=== PATIENT | male | born 1990 | race Caucasian/White ===

== ENCOUNTER 2023-10-18 21:35 | Emergency (ER) | payer MEDICAID, SELFPAY ==
--- NOTE | ~2023-10-18 | XR_ITS ---
EXAMINATION: XR CHEST CLINICAL INFORMATION: Chest pain COMPARISON: 08/04/2019 TECHNIQUE: Frontal view of the chest was obtained. FINDINGS: No significant abnormality is noted involving the heart, lungs, mediastinum, bony thorax or soft tissues. XR/XR chest 1V IMPRESSION: Unremarkable examination.
--- NOTE | 2023-10-18 21:40 | ECG_ITS ---
Test Reason : CHEST PAIN Blood Pressure : / mmHG Vent. Rate : 084 BPM Atrial Rate : 084 BPM P-R Int : 146 ms QRS Dur : 090 ms QT Int : 350 ms P-R-T Axes : 049 086 030 degrees QTc Int : 413 ms Normal sinus rhythm Normal ECG When compared with ECG of 30-DEC-2008 23:13, No significant change was found Referred By: Generic ED Physician Electronically Signed By:ORLIN OTT
[2023-10-18 21:54] VITALS: BP 126/73; PULSE 78; RESP 14; TEMP 37.1; O2SAT 98; BMI 32.7
[2023-10-18 21:56] LABS: MANUAL DIFF FLAG NO
[2023-10-18 22:06] LABS: Basophils Percent Auto 0.2 % (0-2); Eosinophils Absolute Auto 0.1 X10*3/uL (0.0-0.4); Eosinophils Percent Auto 1.1 % (0-4); Hematocrit 45.9 % (42.0-52.0); Hemoglobin 15.6 g/dl (14.0-18.0); Imm Gran Abs Auto 0.03 X10*3/uL (0.00-0.03); Imm Gran Pct Auto 0.4 % (0.0-0.4); Lymphocytes Absolute Auto 1.4 X10*3/uL (1.2-4.9); Lymphocytes Percent Auto 17.9 % (20-40); Mean Corpuscular Hemoglobin 28.2 pg (27.0-33.0); Mean Corpuscular Volume 82.9 fL (80.0-98.0); Mean Platelet Volume 11.3 fL (9.4-12.4); Monocytes Absolute Auto 0.7 X10*3/uL (0.1-1.2); Monocytes Percent Auto 8.6 % (2-11); Neutrophils Absolute Auto 5.8 x10*3/uL (2.0-8.3); Neutrophils Percent Auto 71.8 % (45-73); Platelet Count 270 X10*3/uL (160-400); Red Blood Count 5.54 X10*6/uL (4.60-5.80); Red Cell Distribution Width 13.2 % (11.0-16.0)
[2023-10-18 22:19] LABS: Alanine Aminotransferase 23 U/L (0-40); Albumin Level 4.4 g/dL (3.5-5.0); Alkaline Phosphatase 88 U/L (39-117); Anion Gap 12 (12-20); Aspartate Amino Transferase 21 U/L (5-37); Bilirubin Total 0.5 mg/dL (0.0-1.0); Blood Urea Nitrogen 17 mg/dL (9-16); Calcium 9.3 mg/dL (8.4-10.2); Carbon Dioxide 21 mmol/L (22-29); Chloride 107 mmol/L (96-108); Creatinine Clr Calc Pharmacy 123.7; Estimated Glomerular Filt Rate > 60; Glucose Random 128 mg/dL (60-115); Sodium 136 mmol/L (135-145); Total Protein 7.3 g/dL (6.5-8.0)
[2023-10-18 22:27] LABS: Troponin-I High Sensitivity < 2.7 ng/L (<3.5-35.0)
== END 2023-10-19 05:15 | disposition left against medical advice (07) ==
PROVIDERS: Emergency Provider Emergency Medicine
DX: R07.89 Other chest pain (principal); M54.50 Low back pain, unspecified; Z79.899 Other long term (current) drug therapy
CPT/HCPCS: 36415; 71045; 80053; 84484; 85025; 93005; 99283

== ENCOUNTER → 2023-10-18 21:40 | Outpatient (BNV) | payer MEDICAID, SELFPAY | PROVIDERS: Emergency Provider Emergency Medicine; Visit Provider Internal Medicine | DX: R07.9 Chest pain, unspecified (principal) | CPT/HCPCS: 93010 ==

== ENCOUNTER → 2024-02-21 13:21 | Outpatient (BNVA) | payer SELFPAY | PROVIDERS: Visit Provider Physician Assistant Medical | DX: Z02.79 Encounter for issue of other medical certificate (principal) ==

== ENCOUNTER 2024-06-20 20:09 | Emergency (ER) | payer MEDICAID, SELFPAY ==
--- NOTE | ~2024-06-20 | XR_ITS ---
EXAMINATION: XR FINGER, RIGHT CLINICAL INFORMATION: trauma, foreign body COMPARISON: None available. TECHNIQUE: Frontal view of the hand. 2 coned-down views of the fourth finger. FINDINGS: No radiopaque foreign body. The bones and soft tissues are normal. No fracture. Alignment is anatomic. Joint spaces are maintained. XR/XR finger RT min 2V IMPRESSION: 1. No radiopaque foreign body. 2. No acute fracture or subluxation. Electronically signed by: Robert James MD 06/20/2024 11:22 PM LIZZY GARCIA
[2024-06-20 20:18] VITALS: BP 128/77; PULSE 76; RESP 18; TEMP 36.7; O2SAT 99; BMI 35.4
--- NOTE | 2024-06-20 20:18 | ED_ITS ---
HPI - General Adult General Chief complaint: Wound/Laceration Stated complaint: rt hand ring finger wound/staple in it? Related Data Allergies Allergy/AdvReac Type Severity Reaction Status Date / Time amoxicillin [AMOXICILLIN] Allergy Mild RASH Verified 06/20/24 20:22 Physical Exam ED Vital Signs: Vital Signs - 24 hr 06/20/24 20:18 Temperature 98.0 F Pulse Rate 76 Respiratory Rate 18 Blood Pressure 128/77 Pulse Oximetry 99 Oxygen Delivery Method Room Air BMI result Body Mass Index 35.4 Course Course Course Narrative: RME, this is a rapid medical exam performed by Bryant Dickey please refer to primary provider for complete H&P- 34-year-old male presents for evaluation of a right 4th finger injury. He was working with wood when a piece of the wood broke off and punctured his right 4th finger. He has an open wound to the ulnar side but a piece of wood sticking out on the radial side. It appears he has a large splinter in place. Plan for x-ray. He is unsure of his last tetanus shot. He does not believe that the wood was pressure treated Discharge Plan Discharge Print Language: Kiswahili
--- NOTE | 2024-06-20 22:22 | ED_ITS ---
HPI - Wound/Laceration General Chief Complaint: Wound/Laceration Stated Complaint: rt hand ring finger wound/staple in it? Time Seen by Provider: 06/20/24 21:38 Source: patient Mode of arrival: ambulatory Limitations: no limitations History of Present Illness ED Provider: HPI narrative: Patient apparently got a splinter in his right ring finger while working on diet broken table up-to-date in tetanus Related Data Previous Rx's ?Medication ?Instructions ?Recorded doxycycline hyclate 100 mg tablet 100 mg PO BID #20 tabs 06/20/24 Allergies Allergy/AdvReac Type Severity Reaction Status Date / Time amoxicillin [AMOXICILLIN] Allergy Mild RASH Verified 06/20/24 20:22 Review of Systems 2 Review of Systems: Yes all other systems are reviewed and are negative PMFSH Social History Social History Advance Directives: No Advance Directives Information Provided: Yes Physical Exam 2 Vital Signs: Vital Signs: Last Vital Signs Temp 98.1 F 06/20/24 22:42 Pulse 74 06/20/24 22:42 Resp 20 06/20/24 22:42 BP 128/76 06/20/24 22:42 Pulse Ox 98 06/20/24 22:42 O2 Del Method Room Air 06/20/24 22:42 BMI result Body Mass Index 35.4 Extrem: Hand/finger images: 1. Splinter in the right ring finger Medications Administered Discontinued Medications Generic Name Dose Route Start Last Admin Trade Name Freq PRN Reason Stop Dose Admin Bacitracin 1 appl 06/20/24 22:18 06/20/24 22:41 Bacitracin Oint 0.9 Gm Packet TOPICAL 06/20/24 22:19 1 appl ONCE ONE Administration Protocol Doxycycline Monohydrate 100 mg 06/20/24 22:18 06/20/24 22:41 Doxycycline Monohydrate 100 Mg Capsule PO 06/20/24 22:19 100 mg ONCE ONE Administration Lidocaine HCl 2 ml 06/20/24 22:18 06/20/24 22:41 Lidocaine Hcl 1 % Mpf 2 Ml Vial INFILTRATI 06/20/24 22:19 2 ml ONCE ONE Administration Medical Decision Making Medical Decision Making MDM Narrative: Would not splint her removed from the right ring finger intact using tweezers, will give prophylactic doxycycline x-ray negative Procedures Foreign Body Removal Site: right Description of foreign body: other (Wood splinter) Sedation/Analgesia: other (Lidocaine 1% local infiltration) Technique: removal with forceps Confirmed by:: direct visualization Complications: none Discharge Plan Discharge Clinical Impression: Foreign body finger Patient Disposition: Home, Self-Care Instructions: Soft Tissue Foreign Body (ED) Additional Instructions: Local care as advised Take antibiotics as prophylactically for infection Prescriptions: New doxycycline hyclate 100 mg tablet 100 mg PO BID Qty: 20 0RF Interventions: ED Discharge Assessment Last Done: 06/20/24 22:42 Discharge Date/Time: 06/20/24 22:43 Print Language: Croatian
[2024-06-20 22:33] VITALS: BP 128/76; PULSE 74; RESP 20; TEMP 36.7; O2SAT 98
[2024-06-20] MEDS: Bacitracin Oint 0.9 GM PACKET 1 APPL TOPICAL (22:41)
[2024-06-20] MEDS: Doxycycline Monohydrate 100 MG CAPSULE PO (22:41)
[2024-06-20] MEDS: Lidocaine HCl 1 % MPF 2 ML VIAL INFILTRATI (22:41)
[2024-06-20 22:42] VITALS: BP 128/76; PULSE 74; RESP 20; TEMP 36.7; O2SAT 98
== END 2024-06-20 22:43 | disposition home or self-care (01) ==
PROVIDERS: Emergency Provider Internal Medicine
DX: S60.454A Superficial foreign body of right ring finger, initial encounter (principal); M79.641 Pain in right hand; W26.8XXA Contact with other sharp object(s), not elsewhere classified, initial encounter; Y93.89 Activity, other specified; Y92.89 Other specified places as the place of occurrence of the external cause; Y99.8 Other external cause status
CPT/HCPCS: 10120; 73140; 99282; 99284; J2003

== ENCOUNTER 2024-09-05 09:43 | Outpatient (REF) | payer MEDICAID, SELFPAY ==
--- OUTSIDE RECORDS SUMMARY | 2024-09-05 11:04 | XMS_ITS | Clinical Summary ---
Author Organization [facility] ity Address [address] [place] [address] Care Team Providers Care Sash Maker Name Role Phone Unavailable Primary Care Provider Unavailabl e Social History Tobacco Use Types Packs/Day Years Used Date Smoking Tobacco: Never Assessed Sex and Gender Information Value Date Recorded Sex Assigned at Not on file Legal Sex Male 4:37 AM EST Gender Identity Not on file Sexual Orientation Not on file Plan of Treatment Health Maintenance Due Date Last Done Comments DTaP,Tdap,and Td Vaccines (1 - Tdap) 2010 Hepatitis B Vaccines (1 of 3 - 19+ 3-dose series) 2010 COVID-19 Vaccine (2023-2 5 season) 2024 Influenza Vaccine (#1) 2024 HIB Vaccines Aged Out No longer eligi ble based on patient's age to complete this topic HPV Vaccines Aged Out No longer eligi ble based on patient's age to complete this topic Hepatitis A Vaccines Aged Out No long er eligible based on patient's age to complete this topic IPV Vaccines Aged Out No longer eligi ble based on patient's age to complete this topic MMR Vaccines Aged Out No longer eligi ble based on patient's age to complete this topic Meningococcal ACWY Vaccine Aged Out N o longer eligible based on patient's age to complete this topic Meningococcal B Vacine Aged Out No lo nger eligible based on patient's age to complete this topic Pneumococcal Vaccine: Pediat rics (0 to 5 Years) and At-Risk Patients (6 to 64 Years) Aged Out No longer eligible b ased on patient's age to complete this topic RSV Immunization Patients Un milad 20 months Aged Out No longer eligible b ased on patient's age to complete this topic Varicella Vaccines Aged Out No longer eligible based on patient's age to complete this topic
--- OUTSIDE RECORDS SUMMARY | 2024-09-05 11:04 | XMS_ITS | Encounter Summary ---
Author Organization [employer] Address [address] [place] [address] Care Team Providers Care Trades Helper Name Role Phone Monet Bach DO Primary Care Provider [phone] Encounter Details Date Type Department Care Team (Late st Contact Info) Description 09/05/2024 9:00 AM EST Office Visit [facility] MEDICINE [address] [place] [address] Monet Bach DO [address] [place] [address] Routine history and physical examination of adult (Primary Dx); BMI 37.0-37.9, adult; Dietary counseling; Exercise counseling Social History Tobacco Use Types Packs/Day Years Used Date Smoking Tobacco: Never Smokeless Tobacco: Never Alcohol Use Standard Drinks/Week Comments Never 0 (1 standard drink = 0.6 oz pur e alcohol) Depression Answer Date Recorded Patient Health Questionnaire-9 Score 0 09/05/2024 Patient Health Questionnaire-9 Score 0 09/05/2024 Last PHQ-9: Questionnaire Data Not on file 0 09/05/2024 Housing Stability Answer Date Recorded What is your housing situation today? I have italo parra 09/05/[address] you li ve. Do you have problems with any of the following? None of the above 09/05/2024 Food Insecurity Answer Date Recorded Within the past 12 months, y ou worried that your food would run out before you got money to buy more: Never True 09/05/2024 Within the past 12 months,th e food you bought just didn't last and you didn't have enough money to get more: Never True 11/2024 Transportation Answer Date Recorded In the past 12 months, has l ack of transportation kept you from medical appts, meetings, work or from getting things needed for daily living? No 09/05/2024 Utilities Answer Date Recorded In the past 12 months, has t he electric, gas, oil or water company threatened to shut off services in your home? No 09/05/2024 Depression Answer Date Recorded Patient Health Questionnaire-2 Score 0 09/05/2024 Internet Access Answer Date Recorded Internet Access Q1 Yes 09/05/2024 Internet Access Q2 Not on file 09/05/2024 Sex and Gender Information Value Date Recorded Sex Assigned at Male 09/30/2023 1:54 PM EDT Legal Sex Male 1:50 PM EDT Gender Identity Male 09/30/2023 1:54 PM EDT Sexual Orientation Straight 11/28/2023 3: 26 PM EDT documented as of this encounter Last Filed Vital Signs Vital Sign Reading Time Taken Comments Blood Pressure 128/78 09/05/2024 9:02 AM EST Pulse 88 09/05/2024 9:02 AM EST Temperature 36.2 ??C (97.1 ??F) 09/05/2024 9:02 AM ES T Respiratory Rate 20 09/05/2024 9:02 AM EST Oxygen Saturation 96% 09/05/2024 9:02 AM EST Inhaled Oxygen Concentration - - Weight 107 kg (235 lb) 09/05/2024 9:02 AM EST Height 167.6 cm (5' 6 ) 09/05/2024 9:02 AM EST Body Mass Index 37.93 09/05/2024 9:02 AM EST documented in this encounter Plan of Treatment Scheduled Orders Name Type Priority Associated Diagnoses Orde r Schedule T4, Free Lab Routine Routine history and physical examination of adult BMI 37.0-37.9, adult Dietary counseling Exercise counseling Expected: 09/05/2024 (Approximate), Expires: 09/05/2025 Lipid Panel, Standard Lab Routine Routine history and physical examination of adult BMI 37.0-37.9, adult Dietary counseling Exercise counseling Expected: 09/05/2024 (Approximate), Expires: 09/05/2025 TSH Lab Routine Routine history and physical examination of adult BMI 37.0-37.9, adult Dietary counseling Exercise counseling Expected: 09/05/2024 (Approximate), Expires: 09/05/2025 Vitamin D, 25-Hydroxy, Total, Immunoassay Lab Routine Routine history and physical examination of adult BMI 37.0-37.9, adult Dietary counseling Exercise counseling Expected: 09/05/2024 (Approximate), Expires: 09/05/2025 Hepatic Function Panel Lab Routine Routine history and physical examination of adult BMI 37.0-37.9, adult Dietary counseling Exercise counseling Expected: 09/05/2024 (Approximate), Expires: 09/05/2025 Hemoglobin A1c Lab Routine Routine history and physical examination of adult BMI 37.0-37.9, adult Dietary counseling Exercise counseling Expected: 09/05/2024 (Approximate), Expires: 09/05/2025 CBC Lab Routine Routine history and physical examination of adult BMI 37.0-37.9, adult Dietary counseling Exercise counseling Expected: 09/05/2024, Expires: 09/05/2025 Basic Metabolic Panel Lab Routine Routine history and physical examination of adult BMI 37.0-37.9, adult Dietary counseling Exercise counseling Expected: 09/05/2024 (Approximate), Expires: 09/05/2025 Hepatitis B surface antigen, EIA Lab Routine Routine history and physical examination of adult BMI 37.0-37.9, adult Dietary counseling Exercise counseling Expected: 09/05/2024 (Approximate), Expires: 09/05/2025 Chlamydia/N. Gonorrhoeae RNA, TMA, Urogenitial Microbiology Routine Routine history and physical examination of adult BMI 37.0-37.9, adult Dietary counseling Exercise counseling Ordered: 09/05/2024 HIV-1/2 Antigen and Antibodies, Fourth Generation, with Reflexes Lab Routine Routine history and physical examination of adult BMI 37.0-37.9, adult Dietary counseling Exercise counseling Expected: 09/05/2024 (Approximate), Expires: 09/05/2025 Hepatitis C Antibody with Reflex to HCV, RNA, Quantitative, Real-Time PCR Lab Routine Routine history and physical examination of adult BMI 37.0-37.9, adult Dietary counseling Exercise counseling Expected: 09/05/2024, Expires: 09/05/2025 RPR (Monitor) with Reflex to??Titer Lab Routine Routine history and physical examination of adult BMI 37.0-37.9, adult Dietary counseling Exercise counseling Expected: 09/05/2024, Expires: 09/05/2025 Hepatitis B Surface Antibody, Qualitative Lab Routine Routine history and physical examination of adult BMI 37.0-37.9, adult Dietary counseling Exercise counseling Expected: 09/05/2024 (Approximate), Expires: 09/05/2025 Hepatitis A Antibody, Total Lab Routine Routine history and physical examination of adult BMI 37.0-37.9, adult Dietary counseling Exercise counseling Expected: 09/05/2024 (Approximate), Expires: 09/05/2025 Hepatitis B Core Antibody, Total Lab Routine Routine history and physical examination of adult BMI 37.0-37.9, adult Dietary counseling Exercise counseling Expected: 09/05/2024 (Approximate), Expires: 09/05/2025 T-SPOT??.TB Lab Routine Routine history and physical examination of adult BMI 37.0-37.9, adult Dietary counseling Exercise counseling Expected: 09/05/2024 (Approximate), Expires: 09/05/2025 documented as of this encounter Visit Diagnoses Diagnosis Routine history and physical examination of adult- Primary BMI 37.0-37.9, adult Dietary counseling Dietary surveillance and counseling Exercise counseling documented in this encounter Additional Health Concerns Assessment Noted Time PHQ-9 Depression Total Score: 0 09/06/19 9:05 AM EST documented as of this encounter Care Teams Trades Helper Relationship Specialty Start Date End Date Monet Bach DO [address] [place] [id number] PCP - General Family Medicine 09/05/24 documented as of this encounter
--- OUTSIDE RECORDS SUMMARY | 2024-09-05 11:05 | XMS_ITS | Clinical Summary ---
Author Organization [employer] Address [address] [place] [address] Care Team Providers Care Dry Room Operator Name Role Phone Monet Bach DO Primary Care Provider Allergies Active Allergy Reactions Criticality Noted Date Comments Amoxicillin Hives 09/05/2024 Medications pantoprazole (Protonix) 40 MG EC tablet Take 1 tablet (40 mg) by mouth before breakfast. Do not crush, chew, or split. 90 tablet 3 09/05/2024 Active Active Problems Problem Noted Date Diagnosed Date BMI 37.0-37.9, adult 09/05/2024 Encounters Date Type Department Care Team Description 09/05/2024 9:00 AM EST Office Visit [facility] MEDICINE [address] [place] [address] Monet Bach DO Routine history and physical examination of adult (Primary Dx); BMI 37.0-37.9, adult; Dietary counseling; Exercise counseling 09/05/2024 Travel 07/19/2024 Telephone [facility] MEDICINE [address] [place] [address] Abner Capps MD New patient appt. from Last 3 Months Immunizations Name Administration Dates Next Due Hep A, Adult 09/14/2021 Hep B, adult 10/08/2021 INFLUENZA INJECTABLE QUADRIV ALANT CCIIV4 MDCK Multi-dose vial 04/22/2022 Td (adult), 5 Lf tetanus tox oid, preservative free, adsorbed 01/15/2017 Tdap 09/14/2021 Family History Medical History Relation Name Comments Diabetes Father Hypertension Father Heart disease Maternal Grandmother Diabetes Mother Hypertension Mother Relation Name Status Comments Father Maternal Grandmother Mother Social History Tobacco Use Types Packs/Day Years [...] Orientation Straight 11/28/2023 3: 26 PM EDT Last Filed Vital Signs Vital Sign Reading [...] Mass Index 37.93 09/05/2024 9:02 AM EST Plan of Treatment Health Maintenance Due Date Last Done Comments HIV Screening 1991 Family Planning (PISQ) 2006 Hepatitis C Screening 2009 Hepatitis B Vaccines (2 of 3 - 19+ 3-dose series) 11/05/2021 10/08/2021 COVID-19 Vaccine (2023-2 5 season) 2024 05/11/2023, 09/16/2020, 08/20/2020 Influenza Vaccine (#1) 2024 04/22/2022 Alcohol/Substance Use Screening 09/05/2025 09/05/2024 Depression Screening 09/05/2025 09/05/2024, 09/05/2024 SDOH Screening 09/05/2025 09/05/2024 Tobacco Screening 09/05/2025 09/05/2024 DTaP/Tdap/Td Vaccines (2 - T d or Tdap) 09/15/2031 09/14/2021, 01/15/2017 Zoster Vaccines (1 of 2) 2041 RSV Patients and Patients Aged 60 years or older (1 - 1-dose 75+ series) 2066 Hepatitis A Vaccines Aged Out 09/14/2021 No long er eligible based on patient's age to complete this topic HIB Vaccines Aged Out No longer eligi ble based on patient's age to complete this topic HPV Vaccines Aged Out No longer eligi ble based on patient's age to complete this topic IPV Vaccines Aged Out No longer eligi ble based on patient's age to complete this topic Meningococcal Vaccine Aged Out No ryan rocio eligible based on patient's age to complete this topic Pneumococcal Vaccine: Pediatrics (0 to 5 Years) and At-Risk Patients (6 to 49) Years) Aged Out No longer eligible b ased on patient's age to complete this topic RSV under 20 months Aged Out No longe r eligible based on patient's age to complete this topic Rotavirus Vaccines Aged Out No longer eligible based on patient's age to complete this topic Insurance [facility] C3 HSN PARTIAL Care Teams Dry Room Operator Relationship Specialty Start Date End Date Monet Bach DO [address] [place] [address] PCP - General Family Medicine 09/05/24
--- OUTSIDE RECORDS SUMMARY | 2024-09-05 11:05 | XMS_ITS | Encounter Summary ---
Author Organization [employer] Address [address] [place] [address] Care Team Providers Care Millinery Blocker Name Role Phone Monet Bach DO Primary Care Provider [phone] Encounter Details Date Type Department Care Team (Latest Contact Info) Description 09/05/2024 Travel Social History Tobacco Use Types Packs/Day Years [...] PM EDT documented as of this encounter Plan of Treatment Not on file documented as of this encounter Visit Diagnoses Not on filedocumented in this encounter Additional Health Concerns Assessment Noted Time PHQ-9 Depression Total Score: 0 09/06/19 9:05 AM EST documented as of this encounter Care Teams Millinery Blocker Relationship Specialty Start Date End Date Monet Bach DO [address] [place] [id number] PCP - General Family Medicine 09/05/24 documented as of this encounter
[2024-09-05 12:10] LABS: Estimated Average Glucose 103 mg/dL; Hemoglobin A1C 132.9288 umol/L; Hemoglobin A1c % 5.2 % (<6.0); Total Hemoglobin (HGBA1C) 4043.0696 umol/L
[2024-09-05 12:21] LABS: Albumin Level 4.4 g/dL (3.5-5.0); Alkaline Phosphatase 98 U/L (39-117); Anion Gap 11 (12-20); Aspartate Amino Transferase 25 U/L (5-37); Bilirubin Direct 0.1 mg/dL (0.0-0.5); Bilirubin Total 0.4 mg/dL (0.0-1.0); Blood Urea Nitrogen 16 mg/dL (9-16); Calcium 9.6 mg/dL (8.4-10.2); Carbon Dioxide 25 mmol/L (22-29); Chloride 107 mmol/L (96-108); Cholesterol 209 mg/dL (<200); Estimated Glomerular Filt Rate > 60; Glucose Random 96 mg/dL (60-115); HDL Cholesterol 34 mg/dL (>40); LDL Cholesterol Calculated 146 mg/dL (<100); Potassium 4.1 mmol/L (3.3-5.1); Sodium 139 mmol/L (135-145); Triglycerides 148 mg/dL (<150)
[2024-09-05 12:33] LABS: HBS Num1 > 1000.00 mIU/mL (0-7.99); HBc Num1 0.14 S/CO (0.00-0.79); HBsAGNum1 0.32 S/CO (0.00-0.99); HIV AB/AG Nonreactive (Nonreactive); HIV Num 1 0.08 S/CO (0.00-0.99); Hepatitis B Core Antibody Nonreactive (Nonreactive); Hepatitis B Surface Antigen Negative (Negative); ~HepC Num1 0.17 S/CO (0.00-0.79); ~Hepatitis B Surface Antibody REACTIVE (Nonreactive); ~Hepatitis C Antibody Nonreactive (Nonreactive)
[2024-09-05 12:35] LABS: Hepatitis A Antibody IgG REACTIVE (Nonreactive); ~Hepatitis A Antibody IgG 10.95 S/CO (0.00-0.99)
[2024-09-05 12:39] LABS: Alanine Aminotransferase 28 U/L (0-40)
[2024-09-05 12:43] LABS: Free T4 (Free Thyroxine) 1.01 ng/dL (0.71-1.85); Thyroid Stimulating Hormone 1.44 uIU/mL (0.32-4.0); Vitamin D 25-OH Total 18.3 ng/mL (>30)
[2024-09-05 21:03] LABS: Hematocrit 45.1 % (42.0-52.0); Hemoglobin 15.7 g/dl (14.0-18.0); Mean Corpuscular HGB Conc 34.8 g/dl (31.0-36.0); Mean Corpuscular Hemoglobin 28.8 pg (27.0-33.0); Mean Corpuscular Volume 82.6 fL (80.0-98.0); Mean Platelet Volume 11.7 fL (9.4-12.4); Platelet Count 346 X10*3/uL (160-400); Red Blood Count 5.46 X10*6/uL (4.60-5.80); Red Cell Distribution Width 13.3 % (11.0-16.0); White Blood Count 8.3 X10*3/uL (4.8-10.8)
[2024-09-06 18:13] LABS: RPR Rapid Plasma Reagin NON-REACTIVE (NON-REACTIVE)
[2024-09-06 18:19] LABS: CT PCR NOT DETECTED (Not Detect.); NG PCR NOT DETECTED (Not Detect.)
[2024-09-08 02:09] LABS: TS Negative Control Passed; TS Panel A 1; TS Panel B 1; TS Positive Control Passed; TSpotTB Negative (Negative)
== END 2024-09-05 09:44 | disposition home or self-care (01) ==
LOC: HO.HHCL 09:43
PROVIDERS: Visit Provider Family Medicine
DX: Z00.00 Encounter for general adult medical examination without abnormal findings (principal); Z68.37 Body mass index [BMI] 37.0-37.9, adult; Z71.3 Dietary counseling and surveillance; Z71.82 Exercise counseling
CPT/HCPCS: 80048; 80061; 80076; 82306; 83036; 84439; 84443; 85027; 86481; 86592; 86704; 86706; 86708; 86803; 87340; 87389; 87491; 87591

== ENCOUNTER 2024-10-04 10:12 | Outpatient (REF) | payer MEDICAID, SELFPAY ==
--- NOTE | ~2024-10-04 | XR_ITS ---
EXAMINATION: XR FOOT 3 OR MORE VIEWS RIGHT HISTORY: persistent pain and swelling s/p trauma COMPARISON: There are no prior studies available for comparison. FINDINGS: Three views of the right foot are submitted. Osseous mineralization is normal. There is no fracture or dislocation. The joint spaces are preserved. The soft tissues are unremarkable. XR/XR foot RT min 3V IMPRESSION: Unremarkable examination of the right foot. Electronically signed by: Jagjit Avery MD 10/04/2024 10:55 AM EDT
--- OUTSIDE RECORDS SUMMARY | 2024-10-04 11:02 | XMS_ITS | Clinical Summary ---
Author Organization [facility] ity Address [address] [place] [address] Care Team Providers Care Meat Stuffer Name Role Phone Unavailable Primary Care Provider [...] Vaccine (2023-2 5 season) 2024 Influenza Vaccine (Season Ended) 2025 HIB Vaccines Aged Out No longer eligi [...]
== END 2024-10-04 10:13 | disposition home or self-care (01) ==
LOC: HO.HHCX 10:12
PROVIDERS: Visit Provider Family Medicine
DX: M79.671 Pain in right foot (principal)
CPT/HCPCS: 73630

== ENCOUNTER → 2024-10-04 10:12 | Outpatient (BNV) | payer MEDICAID, SELFPAY | PROVIDERS: Visit Provider Radiology Diagnostic Radiology | DX: M79.671 Pain in right foot (principal) | CPT/HCPCS: 73630 ==